=== PATIENT | male | born 1945 | race African-American/Black ===

== ENCOUNTER 2017-09-03 11:12 | Inpatient (IN) | payer OTHER ==
[~2017-09-03] VITALS: Ht 170.2 cm; Wt 74.8 kg
[2017-09-03] VITALS (31 sets, daily range): BP systolic 77–133; BP diastolic 44–80
[2017-09-03] MEDS ORDERED: SODIUM CHLORIDE 0.9% 1,000 ML IV ONE (11:44)
[2017-09-03 13:01] LABS: HEMATOCRIT. 26.3 % (42.0-52.0); HEMOGLOBIN. 8.5 g/dL (14.0-18.0); MEAN CORPUSCULAR HEMOGLOBIN 27.8 pg (28.0-32.0); MEAN CORPUSCULAR VOLUME 85.8 fL (80.0-94.0); MEAN PLATELET VOLUME 8.6 fl (7.4-10.4); PLATELET 283 x1000/uL (130-400); RED BLOOD CELL COUNT 3.06 mill/uL (4.7-6.1); RED CELL DISTRIBUTION WIDTH 14.1 % (11.6-14.6)
[2017-09-03 13:07] LABS: CARBON DIOXIDE 15 mEq/L (21-32); CHLORIDE 100 mEq/L (98-107); ETHANOL BLOOD < 10 mg/dL; TROPONIN I 0.18 ng/mL (0.00-0.04)
[2017-09-03] MEDS ORDERED: SODIUM CHLORIDE 0.9% 1000ML BAG (SEPSIS BOLUS) IV ONE (13:15)
[2017-09-03 13:23] LABS: CLARITY URINE CLOUDY (CLEAR); COLOR URINE YELLOW (YELLOW); GLUCOSE URINE NEGATIVE (NEGATIVE); KETONES URINE NEGATIVE (NEGATIVE); LEUKOCYTE ESTERASE URINE 2+ (NEGATIVE); NITRITE URINE NEGATIVE (NEGATIVE); OCCULT BLOOD URINE 3+ (NEGATIVE); PROTEIN URINE NEGATIVE (NEGATIVE); SPECIFIC GRAVITY URINE 1.018 (1.005-1.030); UROBILINOGEN URINE 0.2 E.U./dL (0.2-1.0)
[2017-09-03] MEDS ORDERED: LIDOCAINE HCL 1% 20ML VIAL (Pyxis) INJ ONE (13:26)
[2017-09-03 13:34] LABS: INR 1.2; PROTHROMBIN TIME 12.2 sec (9.4-11.6)
[2017-09-03] MEDS ORDERED: VANCOMYCIN 1 G PREMIX 200 ML IV SCH ×2 (13:45→17:15)
[2017-09-03] MEDS ORDERED: PIPERACILLIN/TAZ 3.375G PREMIX 50 ML IV NR (13:45)
[2017-09-03 13:58] LABS: PLATELET ESTIMATE NORMAL
[2017-09-03 14:00] LABS: *AMPHETAMINES SCREEN URINE NEGATIVE (NEGATIVE); *BARBITURATES SCREEN URINE NEGATIVE (NEGATIVE); *BENZODIAZEPINES SCREEN URINE NEGATIVE (NEGATIVE); *COCAINE SCREEN URINE NEGATIVE (NEGATIVE); CANNABINOID URINE SCREEN NEGATIVE (NEGATIVE); METHADONE URINE SCREEN NEGATIVE (NEGATIVE); OPIATES URINE SCREEN NEGATIVE (NEGATIVE); PHENCYCLIDINE URINE SCREEN NEGATIVE (NEGATIVE)
[2017-09-03] MEDS ORDERED: NOREPINEPHRINE 4 MG in DEXT 5% WATER 246 ML IV ONE ×2 (14:30→14:45)
[2017-09-03] MEDS ORDERED: HYDROCODONE/ACETAMINOPHEN 5/325MG TABLET PO PRN (17:15)
[2017-09-03] MEDS ORDERED: ONDANSETRON HCL 4MG/2ML VIAL IV PRN (17:15)
[2017-09-03] MEDS: SODIUM CHLORIDE 0.9% 1,000 ML IV SCH ×2 (17:21→21:30)
[2017-09-03] MEDS ORDERED: INFLUENZA VIRUS VACCINE 0.5ML SYR IM ONE (18:00)
[2017-09-03] MEDS ORDERED: PNEUMOCOCCAL 23-VAL P-SAC VAC 0.5 ML IM ONE (18:00)
[2017-09-03 19:29] LABS: PHOSPHORUS 9.5 mg/dL (2.5-4.9)
[2017-09-03] MEDS ORDERED: VANCOMYCIN 500 MG PREMIX 100 ML IV NR (19:30)
[2017-09-04] VITALS (116 sets, daily range): BP systolic 69–140; BP diastolic 38–112
[2017-09-04] LABS: CREATINE KINASE MB FRACTION 40.1 ng/mL (0.5-3.6); TROPONIN I 0.23 ng/mL (0.00-0.04)
[2017-09-04] MEDS: MORPHINE SULFATE 4 MG/ML CPJ (NOT FOR IM USE) IV PRN ×2 (02:14→06:14)
[2017-09-04] MEDS: SODIUM CHLORIDE 0.9% 1,000 ML IV SCH ×2 (02:18→05:57)
[2017-09-04 05:39] LABS: HEMATOCRIT. 24.3 % (42.0-52.0); HEMOGLOBIN. 7.8 g/dL (14.0-18.0); MEAN CORPUSCULAR HEMOGLOBIN 27.7 pg (28.0-32.0); MEAN CORPUSCULAR VOLUME 86.3 fL (80.0-94.0); MEAN PLATELET VOLUME 8.3 fl (7.4-10.4); PLATELET 252 x1000/uL (130-400); RED BLOOD CELL COUNT 2.82 mill/uL (4.7-6.1); RED CELL DISTRIBUTION WIDTH 14.4 % (11.6-14.6)
[2017-09-04 06:26] LABS: PHOSPHORUS 7.8 mg/dL (2.5-4.9)
[2017-09-04 06:39] LABS: CREATINE KINASE MB FRACTION 31.2 ng/mL (0.5-3.6); TROPONIN I 0.3 ng/mL (0.00-0.04)
[2017-09-04 06:48] LABS: HEPATITIS B SURFACE ANTIGEN NEGATIVE
[2017-09-04 07:16] LABS: HEPATITIS B CORE AB IGM NEGATIVE
[2017-09-04 07:18] LABS: HEPATITIS A AB IGM NEGATIVE (NEGATIVE)
[2017-09-04] MEDS: MULTIVITAMINS,THER W-MINERALS TABLET PO SCH (08:45)
[2017-09-04] MEDS: PANTOPRAZOLE SODIUM 40 MG/VIAL IV SCH (08:45)
[2017-09-04] MEDS: FERROUS SULFATE 325MG TABLET PO SCH (08:45)
[2017-09-04] MEDS ORDERED: CEFEPIME 2,000 MG in DEXT 5% WATER 100 ML IV SCH (09:00)
[2017-09-04] MEDS ORDERED: ENOXAPARIN 30MG/0.3ML SYR SUBCUT SCH (09:00)
[2017-09-04] MEDS ORDERED: CEFEPIME 500 MG in DEXTROSE 5% WATER 50 ML IV SCH (09:00)
[2017-09-04] MEDS: METRONIDAZOLE 500 MG PREMIX 100 ML IV SCH ×2 (09:12→15:34)
[2017-09-04] MEDS ORDERED: ENOXAPARIN 40MG/0.4ML SYR SUBCUT NR (11:15)
[2017-09-04] MEDS: DEXT 5%/0.45% NACL 1000ML 1,000 ML IV SCH (11:24)
[2017-09-04] MEDS: TAMSULOSIN HCL 0.4MG SR CAPSULE PO SCH (11:24)
[2017-09-04 13:40] LABS: PLATELET ESTIMATE NORMAL
[2017-09-04] MEDS ORDERED: VANCOMYCIN 1 G PREMIX 200 ML IV NR (16:00)
[2017-09-04] MEDS: NOREPINEPHRINE 8 MG in DEXT 5% WATER 242 ML IV PRN (20:38)
[2017-09-04] MEDS: CLOTRIMAZOLE 1% CREAM 30GM TOP SCH (23:34)
[2017-09-05] VITALS (94 sets, daily range): BP systolic 79–141; BP diastolic 27–100
[2017-09-05] MEDS: METRONIDAZOLE 500 MG PREMIX 100 ML IV SCH ×3 (00:21→16:18)
[2017-09-05] MEDS: DEXT 5%/0.45% NACL 1000ML 1,000 ML IV SCH ×2 (00:28→07:15)
[2017-09-05] MEDS: MORPHINE SULFATE 4 MG/ML CPJ (NOT FOR IM USE) IV PRN ×4 (01:12→22:19)
[2017-09-05] MEDS: LORAZEPAM 2MG/ML CPJ IV PRN (04:39)
[2017-09-05 05:24] LABS: HEMATOCRIT. 22.6 % (42.0-52.0); HEMOGLOBIN. 7.4 g/dL (14.0-18.0); MEAN CORPUSCULAR HEMOGLOBIN 28.6 pg (28.0-32.0); MEAN CORPUSCULAR VOLUME 87.1 fL (80.0-94.0); MEAN PLATELET VOLUME 8.3 fl (7.4-10.4); PLATELET 214 x1000/uL (130-400); RED BLOOD CELL COUNT 2.59 mill/uL (4.7-6.1); RED CELL DISTRIBUTION WIDTH 14.9 % (11.6-14.6)
[2017-09-05] MEDS: FERROUS SULFATE 325MG TABLET PO SCH (08:26)
[2017-09-05] MEDS: MULTIVITAMINS,THER W-MINERALS TABLET PO SCH (08:26)
[2017-09-05] MEDS: PANTOPRAZOLE SODIUM 40 MG/VIAL IV SCH (08:26)
[2017-09-05] MEDS: CEFEPIME 2,000 MG in DEXT 5% WATER 100 ML IV SCH (08:29)
[2017-09-05] MEDS ORDERED: ENOXAPARIN 80MG/0.8ML SYR SUBCUT SCH (09:00)
[2017-09-05] MEDS: CLOTRIMAZOLE 1% CREAM 30GM TOP SCH ×2 (09:26→23:11)
[2017-09-05] MEDS: TAMSULOSIN HCL 0.4MG SR CAPSULE PO SCH (09:26)
[2017-09-05] MEDS: DEXTROSE 5% WATER 1,000 ML IV SCH ×4 (09:26→22:55)
[2017-09-05 09:28] LABS: PLATELET ESTIMATE NORMAL
[2017-09-05 11:05] LABS: HEMATOCRIT. 22.5 % (42.0-52.0); HEMOGLOBIN. 7.3 g/dL (14.0-18.0); MEAN CORPUSCULAR HEMOGLOBIN 28.6 pg (28.0-32.0); MEAN CORPUSCULAR VOLUME 87.7 fL (80.0-94.0); MEAN PLATELET VOLUME 8.4 fl (7.4-10.4); PLATELET 208 x1000/uL (130-400); RED BLOOD CELL COUNT 2.57 mill/uL (4.7-6.1); RED CELL DISTRIBUTION WIDTH 15.1 % (11.6-14.6)
[2017-09-05] MEDS: NOREPINEPHRINE 8 MG in DEXT 5% WATER 242 ML IV PRN (11:07)
[2017-09-05 11:19] LABS: CARBON DIOXIDE 25 mEq/L (21-32); CHLORIDE 139 mEq/L (98-107); CREATINE KINASE 647 IU/L (39-308); CREATINE KINASE MB FRACTION 9.9 ng/mL (0.5-3.6); TROPONIN I 0.16 ng/mL (0.00-0.04)
[2017-09-05 12:59] LABS: PLATELET ESTIMATE NORMAL
[2017-09-05] MEDS: APIXABAN 5 MG TABLET PO SCH ×2 (15:12→22:19)
[2017-09-06] VITALS (103 sets, daily range): BP systolic 73–153; BP diastolic 22–89
[2017-09-06] MEDS: METRONIDAZOLE 500 MG PREMIX 100 ML IV SCH ×3 (00:14→15:04)
[2017-09-06] MEDS: MORPHINE SULFATE 4 MG/ML CPJ (NOT FOR IM USE) IV PRN ×2 (02:23→11:28)
[2017-09-06] MEDS: NOREPINEPHRINE 8 MG in DEXT 5% WATER 242 ML IV PRN (04:37)
[2017-09-06 05:15] LABS: CARBON DIOXIDE 25 mEq/L (21-32); CHLORIDE 136 mEq/L (98-107); CREATINE KINASE 522 IU/L (39-308)
[2017-09-06] MEDS: DEXTROSE 5% WATER 1,000 ML IV SCH ×4 (05:39→17:37)
[2017-09-06] MEDS: TAMSULOSIN HCL 0.4MG SR CAPSULE PO SCH ×2 (07:59→09:00)
[2017-09-06] MEDS: PANTOPRAZOLE SODIUM 40 MG/VIAL IV SCH (07:59)
[2017-09-06] MEDS: LORAZEPAM 2MG/ML CPJ IV PRN ×3 (07:59→17:36)
[2017-09-06] MEDS: FERROUS SULFATE 325MG TABLET PO SCH ×2 (08:00→09:00)
[2017-09-06] MEDS: APIXABAN 5 MG TABLET PO SCH ×3 (08:00→16:13)
[2017-09-06] MEDS: MULTIVITAMINS,THER W-MINERALS TABLET PO SCH ×2 (08:00→09:00)
[2017-09-06] MEDS: CLOTRIMAZOLE 1% CREAM 30GM TOP SCH ×2 (08:01→20:56)
[2017-09-06 08:07] LABS: HEMATOCRIT. 21.9 % (42.0-52.0); MEAN CORPUSCULAR HEMOGLOBIN 28.3 pg (28.0-32.0); MEAN CORPUSCULAR VOLUME 89.4 fL (80.0-94.0); MEAN PLATELET VOLUME 8.9 fl (7.4-10.4); PLATELET 192 x1000/uL (130-400); RED BLOOD CELL COUNT 2.45 mill/uL (4.7-6.1); RED CELL DISTRIBUTION WIDTH 15.5 % (11.6-14.6)
[2017-09-06 08:10] LABS: HEMOGLOBIN. 6.9 g/dL (14.0-18.0)
[2017-09-06] MEDS: CEFEPIME 2,000 MG in DEXT 5% WATER 100 ML IV SCH (09:52)
[2017-09-06 09:58] LABS: PLATELET ESTIMATE NORMAL
[2017-09-06 10:34] LABS: TOTAL IRON BINDING CAPACITY 132 ug/dL (250-450)
[2017-09-06 11:32] LABS: CLARITY URINE CLOUDY (CLEAR); COLOR URINE YELLOW (YELLOW); GLUCOSE URINE NEGATIVE (NEGATIVE); KETONES URINE NEGATIVE (NEGATIVE); LEUKOCYTE ESTERASE URINE 2+ (NEGATIVE); NITRITE URINE NEGATIVE (NEGATIVE); OCCULT BLOOD URINE 3+ (NEGATIVE); PROTEIN URINE 1+ (NEGATIVE); SPECIFIC GRAVITY URINE 1.018 (1.005-1.030); UROBILINOGEN URINE 0.2 E.U./dL (0.2-1.0)
[2017-09-06 11:54] LABS: FOLIC ACID (FOLATE) SERUM 4.3 ng/mL (>5.38)
[2017-09-06] MEDS ORDERED: VANCOMYCIN 1 G PREMIX 200 ML IV NR (12:15)
[2017-09-06] MEDS ORDERED: ACETAMINOPHEN 325MG TABLET PO PRN (12:45)
[2017-09-06] MEDS ORDERED: VANCOMYCIN 1 G PREMIX 200 ML IV SCH (13:00)
[2017-09-06 15:04] LABS: INR 1.5
[2017-09-06 15:25] LABS: HEMATOCRIT. 23.5 % (42.0-52.0); HEMOGLOBIN. 7.4 g/dL (14.0-18.0); MEAN CORPUSCULAR VOLUME 88.5 fL (80.0-94.0); MEAN PLATELET VOLUME 8.6 fl (7.4-10.4); PLATELET 163 x1000/uL (130-400); RED BLOOD CELL COUNT 2.66 mill/uL (4.7-6.1); RED CELL DISTRIBUTION WIDTH 16.9 % (11.6-14.6)
[2017-09-06 16:49] LABS: NUCLEATED RED BLOOD CELLS 2 /100 WBC; PLATELET ESTIMATE NORMAL
[2017-09-06] MEDS: VANCOMYCIN 500 MG PREMIX 100 ML IV SCH (20:56)
[2017-09-07] VITALS (84 sets, daily range): BP systolic 75–157; BP diastolic 36–93
[2017-09-07] MEDS: DEXTROSE 5% WATER 1,000 ML IV SCH ×5 (00:43→16:09)
[2017-09-07] MEDS: METRONIDAZOLE 500 MG PREMIX 100 ML IV SCH ×4 (00:43→23:18)
[2017-09-07 05:30] LABS: HEMATOCRIT. 22.8 % (42.0-52.0); HEMOGLOBIN. 7.3 g/dL (14.0-18.0); MEAN CORPUSCULAR HEMOGLOBIN 29.1 pg (28.0-32.0); PLATELET 133 x1000/uL (130-400); RED BLOOD CELL COUNT 2.51 mill/uL (4.7-6.1); RED CELL DISTRIBUTION WIDTH 17.5 % (11.6-14.6)
[2017-09-07 07:36] LABS: PLATELET ESTIMATE NORMAL
[2017-09-07 07:43] LABS: CARBON DIOXIDE 26 mEq/L (21-32); CHLORIDE 127 mEq/L (98-107); CREATINE KINASE 531 IU/L (39-308); CREATINE KINASE MB FRACTION 10.8 ng/mL (0.5-3.6); PHOSPHORUS 1.6 mg/dL (2.5-4.9)
[2017-09-07] MEDS: MULTIVITAMINS,THER W-MINERALS TABLET PO SCH (09:21)
[2017-09-07] MEDS: PANTOPRAZOLE SODIUM 40 MG/VIAL IV SCH (09:21)
[2017-09-07] MEDS: APIXABAN 5 MG TABLET PO SCH ×2 (09:21→16:55)
[2017-09-07] MEDS: FERROUS SULFATE 325MG TABLET PO SCH (09:21)
[2017-09-07] MEDS: CLOTRIMAZOLE 1% CREAM 30GM TOP SCH ×2 (09:22→21:10)
[2017-09-07] MEDS: TAMSULOSIN HCL 0.4MG SR CAPSULE PO SCH (09:24)
[2017-09-07] MEDS: CEFEPIME 2,000 MG in DEXT 5% WATER 100 ML IV SCH (10:49)
[2017-09-07] MEDS: VANCOMYCIN 500 MG PREMIX 100 ML IV SCH ×2 (11:28→21:09)
[2017-09-07] MEDS ORDERED: MAGNESIUM 2 G PREMIX 50 ML IV NR (12:00)
[2017-09-07] MEDS ORDERED: POTASSIUM PHOS,M-BASIC-D-BASIC 20 MMOL in DEXT 5% WATER 243.3333 ML IV NR (14:00)
[2017-09-08] VITALS (22 sets, daily range): BP systolic 88–136; BP diastolic 32–84
[2017-09-08] MEDS: DEXTROSE 5% WATER 1,000 ML IV SCH ×2 (04:30→17:31)
[2017-09-08] MEDS: CEFEPIME 2,000 MG in DEXT 5% WATER 100 ML IV SCH (09:12)
[2017-09-08] MEDS: VANCOMYCIN 500 MG PREMIX 100 ML IV SCH ×2 (09:13→20:49)
[2017-09-08] MEDS: METRONIDAZOLE 500 MG PREMIX 100 ML IV SCH ×2 (09:13→17:30)
[2017-09-08] MEDS: FERROUS SULFATE 325MG TABLET PO SCH (09:13)
[2017-09-08] MEDS: APIXABAN 5 MG TABLET PO SCH ×2 (09:13→17:30)
[2017-09-08] MEDS: PANTOPRAZOLE SODIUM 40 MG/VIAL IV SCH (09:13)
[2017-09-08] MEDS: MULTIVITAMINS,THER W-MINERALS TABLET PO SCH (09:13)
[2017-09-08] MEDS: CLOTRIMAZOLE 1% CREAM 30GM TOP SCH ×2 (09:14→20:50)
[2017-09-08] MEDS: TAMSULOSIN HCL 0.4MG SR CAPSULE PO SCH (09:16)
[2017-09-08] MEDS ORDERED: SODIUM CHLORIDE 0.9% 500 ML IV ONE (15:30)
[2017-09-08] MEDS: DEXT 5%/0.45% NACL 1000ML 1,000 ML IV SCH (17:43)
[2017-09-09] VITALS (12 sets, daily range): BP systolic 81–122; BP diastolic 40–73
[2017-09-09] MEDS: METRONIDAZOLE 500 MG PREMIX 100 ML IV SCH ×3 (05:27→16:29)
[2017-09-09 06:55] LABS: BASOPHILS % 0.5 % (0.0-2.0); EOSINOPHILS % 1.2 % (0.0-5.0); HEMATOCRIT. 24.5 % (42.0-52.0); LYMPHOCYTES % 9.8 % (20.0-50.0); MEAN CORPUSCULAR HEMOGLOBIN 28.8 pg (28.0-32.0); MEAN CORPUSCULAR VOLUME 88.2 fL (80.0-94.0); MEAN PLATELET VOLUME 9.1 fl (7.4-10.4); MONOCYTES % 6.4 % (2.0-8.0); NEUTROPHILS % 82.1 % (40.0-76.0); PLATELET 120 x1000/uL (130-400); RED BLOOD CELL COUNT 2.77 mill/uL (4.7-6.1); RED CELL DISTRIBUTION WIDTH 17.3 % (11.6-14.6)
[2017-09-09 08:23] LABS: CARBON DIOXIDE 25 mEq/L (21-32); CHLORIDE 124 mEq/L (98-107)
[2017-09-09] MEDS: FERROUS SULFATE 325MG TABLET PO SCH (09:27)
[2017-09-09] MEDS: MULTIVITAMINS,THER W-MINERALS TABLET PO SCH (09:27)
[2017-09-09] MEDS: PANTOPRAZOLE SODIUM 40 MG/VIAL IV SCH (09:27)
[2017-09-09] MEDS: CEFEPIME 2,000 MG in DEXT 5% WATER 100 ML IV SCH (09:27)
[2017-09-09] MEDS: CLOTRIMAZOLE 1% CREAM 30GM TOP SCH ×2 (09:28→20:59)
[2017-09-09] MEDS: TAMSULOSIN HCL 0.4MG SR CAPSULE PO SCH (09:28)
[2017-09-09] MEDS: APIXABAN 5 MG TABLET PO SCH ×2 (09:28→16:29)
[2017-09-09] MEDS ORDERED: POTASSIUM CHLORIDE 20MEQ/PACKET PO NR ×3 (09:30→18:00)
[2017-09-09] MEDS ORDERED: MAGNESIUM 2 G PREMIX 50 ML IV NR (11:00)
[2017-09-09] MEDS: DEXT 5%/0.45% NACL 1000ML 1,000 ML IV SCH (14:40)
[2017-09-09] MEDS: DEXTROSE 5% WATER 1,000 ML IV SCH (21:03)
[2017-09-10] VITALS (12 sets, daily range): BP systolic 84–134; BP diastolic 48–76
[2017-09-10 00:13] LABS: CARBON DIOXIDE 24 mEq/L (21-32); CHLORIDE 127 mEq/L (98-107)
[2017-09-10] MEDS: METRONIDAZOLE 500 MG PREMIX 100 ML IV SCH ×3 (00:59→17:13)
[2017-09-10] MEDS: CEFEPIME 2,000 MG in DEXT 5% WATER 100 ML IV SCH (09:00)
[2017-09-10] MEDS: CLOTRIMAZOLE 1% CREAM 30GM TOP SCH ×2 (09:00→22:22)
[2017-09-10] MEDS: APIXABAN 5 MG TABLET PO SCH ×2 (09:34→17:15)
[2017-09-10] MEDS: PANTOPRAZOLE SODIUM 40 MG/VIAL IV SCH (09:34)
[2017-09-10] MEDS: MULTIVITAMINS,THER W-MINERALS TABLET PO SCH (09:35)
[2017-09-10] MEDS: TAMSULOSIN HCL 0.4MG SR CAPSULE PO SCH (09:35)
[2017-09-10] MEDS: FERROUS SULFATE 325MG TABLET PO SCH (09:35)
[2017-09-10] MEDS: DEXTROSE 5% WATER 1,000 ML IV SCH (10:41)
[2017-09-10] MEDS: POTASSIUM CHLORIDE 20MEQ TABLET SR PO NR ×2 (22:22→22:28)
[2017-09-10 22:28] LABS: BASOPHILS % 0.5 % (0.0-2.0); EOSINOPHILS % 1.3 % (0.0-5.0); HEMATOCRIT. 24.7 % (42.0-52.0); HEMOGLOBIN. 8.1 g/dL (14.0-18.0); LYMPHOCYTES % 11.3 % (20.0-50.0); MEAN CORPUSCULAR HEMOGLOBIN 29.1 pg (28.0-32.0); MEAN CORPUSCULAR VOLUME 88.6 fL (80.0-94.0); MONOCYTES % 7.2 % (2.0-8.0); NEUTROPHILS % 79.7 % (40.0-76.0); PLATELET 117 x1000/uL (130-400); RED BLOOD CELL COUNT 2.78 mill/uL (4.7-6.1); RED CELL DISTRIBUTION WIDTH 17.4 % (11.6-14.6)
[2017-09-10 22:41] LABS: CARBON DIOXIDE 26 mEq/L (21-32); CHLORIDE 122 mEq/L (98-107)
[2017-09-11] VITALS (16 sets, daily range): BP systolic 100–144; BP diastolic 57–89
[2017-09-11] MEDS: DEXTROSE 5% WATER 1,000 ML IV SCH ×2 (01:20→17:57)
[2017-09-11] MEDS: METRONIDAZOLE 500 MG PREMIX 100 ML IV SCH ×2 (01:20→10:50)
[2017-09-11] MEDS: PANTOPRAZOLE SODIUM 40 MG/VIAL IV SCH (10:48)
[2017-09-11] MEDS: APIXABAN 5 MG TABLET PO SCH ×2 (10:48→17:57)
[2017-09-11] MEDS: TAMSULOSIN HCL 0.4MG SR CAPSULE PO SCH (10:49)
[2017-09-11] MEDS: FERROUS SULFATE 325MG TABLET PO SCH (10:49)
[2017-09-11] MEDS: MULTIVITAMINS,THER W-MINERALS TABLET PO SCH (10:49)
[2017-09-11] MEDS: CEFEPIME 2,000 MG in DEXT 5% WATER 100 ML IV SCH (10:50)
[2017-09-11] MEDS: CLOTRIMAZOLE 1% CREAM 30GM TOP SCH ×2 (10:51→22:04)
[2017-09-12] VITALS (16 sets, daily range): BP systolic 100–153; BP diastolic 56–88
[2017-09-12] MEDS: DEXTROSE 5% WATER 1,000 ML IV SCH ×2 (04:37→09:45)
[2017-09-12] MEDS: CLOTRIMAZOLE 1% CREAM 30GM TOP SCH (09:00)
[2017-09-12] MEDS: MULTIVITAMINS,THER W-MINERALS TABLET PO SCH (09:10)
[2017-09-12] MEDS: PANTOPRAZOLE SODIUM 40 MG/VIAL IV SCH (09:10)
[2017-09-12] MEDS: APIXABAN 5 MG TABLET PO SCH ×2 (09:10→18:13)
[2017-09-12] MEDS: FERROUS SULFATE 325MG TABLET PO SCH (09:10)
[2017-09-12] MEDS: CEFEPIME 2,000 MG in DEXT 5% WATER 100 ML IV SCH (09:10)
[2017-09-12] MEDS: TAMSULOSIN HCL 0.4MG SR CAPSULE PO SCH (09:11)
[2017-09-12] MEDS ORDERED: MAGNESIUM/ALUMINUM HYDROXIDE/SIMETHICONE 30ML UDC PO PRN (09:30)
[2017-09-12] MEDS ORDERED: SODIUM CHLORIDE 0.9% 1,000 ML IV SCH (09:45)
[2017-09-12 11:24] LABS: BASOPHILS % 0.7 % (0.0-2.0); HEMATOCRIT. 22.1 % (42.0-52.0); HEMOGLOBIN. 7.3 g/dL (14.0-18.0); LYMPHOCYTES % 16.1 % (20.0-50.0); MEAN CORPUSCULAR HEMOGLOBIN 29.2 pg (28.0-32.0); MEAN PLATELET VOLUME 8.7 fl (7.4-10.4); MONOCYTES % 8.7 % (2.0-8.0); NEUTROPHILS % 72.5 % (40.0-76.0); PLATELET 123 x1000/uL (130-400); RED BLOOD CELL COUNT 2.49 mill/uL (4.7-6.1); RED CELL DISTRIBUTION WIDTH 17.6 % (11.6-14.6)
[2017-09-12 11:39] LABS: CARBON DIOXIDE 26 mEq/L (21-32); CHLORIDE 111 mEq/L (98-107); PHOSPHORUS 1.1 mg/dL (2.5-4.9)
[2017-09-12] MEDS: POTASSIUM CHLORIDE 20MEQ/PACKET PO SCH ×2 (13:12→18:13)
[2017-09-12] MEDS ORDERED: MAGNESIUM 2 G PREMIX 50 ML IV NR (13:30)
[2017-09-12] MEDS ORDERED: POTASSIUM PHOS,M-BASIC-D-BASIC 20 MMOL in DEXT 5% WATER 243.3333 ML IV NR (13:30)
[2017-09-13] VITALS (12 sets, daily range): BP systolic 106–149; BP diastolic 62–79
[2017-09-13] MEDS: DEXTROSE 5% WATER 1,000 ML IV SCH ×3 (00:45→22:48)
[2017-09-13] MEDS: CLOTRIMAZOLE 1% CREAM 30GM TOP SCH ×3 (00:46→22:08)
[2017-09-13 06:14] LABS: BASOPHILS % 0.6 % (0.0-2.0); EOSINOPHILS % 1.7 % (0.0-5.0); HEMOGLOBIN. 8.9 g/dL (14.0-18.0); LYMPHOCYTES % 15.8 % (20.0-50.0); MEAN CORPUSCULAR HEMOGLOBIN 28.9 pg (28.0-32.0); MEAN CORPUSCULAR VOLUME 90.6 fL (80.0-94.0); NEUTROPHILS % 71.9 % (40.0-76.0); PLATELET 135 x1000/uL (130-400); RED BLOOD CELL COUNT 3.08 mill/uL (4.7-6.1); RED CELL DISTRIBUTION WIDTH 19.3 % (11.6-14.6)
[2017-09-13 06:24] LABS: CARBON DIOXIDE 25 mEq/L (21-32); CHLORIDE 118 mEq/L (98-107)
[2017-09-13] MEDS: MULTIVITAMINS,THER W-MINERALS TABLET PO SCH (09:06)
[2017-09-13] MEDS: TAMSULOSIN HCL 0.4MG SR CAPSULE PO SCH (09:07)
[2017-09-13] MEDS: MAGNESIUM OXIDE 400MG TABLET PO SCH (09:07)
[2017-09-13] MEDS: FERROUS SULFATE 325MG TABLET PO SCH (09:07)
[2017-09-13] MEDS: FOLIC ACID 1MG TABLET PO SCH (09:07)
[2017-09-13] MEDS: APIXABAN 5 MG TABLET PO SCH ×2 (09:07→16:57)
[2017-09-13] MEDS ORDERED: POTASSIUM PHOS,M-BASIC-D-BASIC 15 MMOL in DEXT 5% WATER 245 ML IV ONE (10:00)
[2017-09-13] MEDS ORDERED: MAGNESIUM 2 G PREMIX 50 ML IV ONE (11:00)
[2017-09-13] MEDS ORDERED: POTASSIUM CHLORIDE 20MEQ TABLET SR PO NR (12:45)
[2017-09-14] VITALS (12 sets, daily range): BP systolic 93–151; BP diastolic 43–80
[2017-09-14] MEDS: DEXTROSE 5% WATER 1,000 ML IV SCH ×2 (01:45→16:48)
[2017-09-14 05:55] LABS: BASOPHILS % 0.7 % (0.0-2.0); EOSINOPHILS % 1.5 % (0.0-5.0); HEMATOCRIT. 28.2 % (42.0-52.0); HEMOGLOBIN. 9.3 g/dL (14.0-18.0); MEAN CORPUSCULAR HEMOGLOBIN 28.6 pg (28.0-32.0); MEAN CORPUSCULAR VOLUME 86.9 fL (80.0-94.0); MEAN PLATELET VOLUME 8.7 fl (7.4-10.4); NEUTROPHILS % 72.8 % (40.0-76.0); PLATELET 147 x1000/uL (130-400); RED BLOOD CELL COUNT 3.24 mill/uL (4.7-6.1); RED CELL DISTRIBUTION WIDTH 18.9 % (11.6-14.6)
[2017-09-14 06:39] LABS: CARBON DIOXIDE 29 mEq/L (21-32); CHLORIDE 113 mEq/L (98-107); PHOSPHORUS 1.9 mg/dL (2.5-4.9)
[2017-09-14] MEDS: APIXABAN 5 MG TABLET PO SCH ×2 (08:30→16:48)
[2017-09-14] MEDS: FERROUS SULFATE 325MG TABLET PO SCH (08:31)
[2017-09-14] MEDS: MULTIVITAMINS,THER W-MINERALS TABLET PO SCH (08:31)
[2017-09-14] MEDS: TAMSULOSIN HCL 0.4MG SR CAPSULE PO SCH (08:31)
[2017-09-14] MEDS: FOLIC ACID 1MG TABLET PO SCH (08:31)
[2017-09-14] MEDS: MAGNESIUM OXIDE 400MG TABLET PO SCH (08:31)
[2017-09-14] MEDS: CLOTRIMAZOLE 1% CREAM 30GM TOP SCH ×2 (08:32→22:13)
[2017-09-14] MEDS ORDERED: POTASSIUM PHOS,M-BASIC-D-BASIC 20 MMOL in DEXT 5% WATER 243.3333 ML IV NR (18:00)
[2017-09-15] VITALS (12 sets, daily range): BP systolic 91–143; BP diastolic 54–78
[2017-09-15] MEDS: DEXTROSE 5% WATER 1,000 ML IV SCH ×2 (05:19→15:55)
[2017-09-15] MEDS: CLOTRIMAZOLE 1% CREAM 30GM TOP SCH ×2 (09:16→22:05)
[2017-09-15] MEDS: FOLIC ACID 1MG TABLET PO SCH (09:16)
[2017-09-15] MEDS: MAGNESIUM OXIDE 400MG TABLET PO SCH (09:16)
[2017-09-15] MEDS: APIXABAN 5 MG TABLET PO SCH ×2 (09:17→17:21)
[2017-09-15] MEDS: FERROUS SULFATE 325MG TABLET PO SCH (09:17)
[2017-09-15] MEDS: MULTIVITAMINS,THER W-MINERALS TABLET PO SCH (09:18)
[2017-09-15] MEDS: TAMSULOSIN HCL 0.4MG SR CAPSULE PO SCH (09:22)
[2017-09-16] VITALS (12 sets, daily range): BP systolic 116–145; BP diastolic 66–83
[2017-09-16] MEDS: DEXTROSE 5% WATER 1,000 ML IV SCH (06:05)
[2017-09-16 06:56] LABS: BASOPHILS % 0.4 % (0.0-2.0); EOSINOPHILS % 1.1 % (0.0-5.0); HEMATOCRIT. 25.3 % (42.0-52.0); HEMOGLOBIN. 8.3 g/dL (14.0-18.0); MEAN CORPUSCULAR HEMOGLOBIN 28.7 pg (28.0-32.0); MEAN CORPUSCULAR VOLUME 87.2 fL (80.0-94.0); MEAN PLATELET VOLUME 8.6 fl (7.4-10.4); MONOCYTES % 10.8 % (2.0-8.0); NEUTROPHILS % 64.7 % (40.0-76.0); PLATELET 156 x1000/uL (130-400); RED CELL DISTRIBUTION WIDTH 18.5 % (11.6-14.6)
[2017-09-16 07:33] LABS: CARBON DIOXIDE 30 mEq/L (21-32); CHLORIDE 107 mEq/L (98-107); PHOSPHORUS 1.8 mg/dL (2.5-4.9)
[2017-09-16] MEDS: FOLIC ACID 1MG TABLET PO SCH (08:49)
[2017-09-16] MEDS: MULTIVITAMINS,THER W-MINERALS TABLET PO SCH (08:49)
[2017-09-16] MEDS: MAGNESIUM OXIDE 400MG TABLET PO SCH (08:49)
[2017-09-16] MEDS: APIXABAN 5 MG TABLET PO SCH ×2 (08:49→16:49)
[2017-09-16] MEDS: CLOTRIMAZOLE 1% CREAM 30GM TOP SCH ×2 (08:49→20:35)
[2017-09-16] MEDS: FERROUS SULFATE 325MG TABLET PO SCH (08:49)
[2017-09-16] MEDS: TAMSULOSIN HCL 0.4MG SR CAPSULE PO SCH (08:50)
[2017-09-16] MEDS: POTASSIUM CHLORIDE 20MEQ TABLET SR PO SCH (16:49)
[2017-09-17] VITALS (7 sets, daily range): BP systolic 100–150; BP diastolic 61–92
[2017-09-17] MEDS: POTASSIUM CHLORIDE 20MEQ TABLET SR PO SCH ×2 (02:13→14:57)
[2017-09-17] MEDS: APIXABAN 5 MG TABLET PO SCH ×2 (08:52→17:38)
[2017-09-17] MEDS: FOLIC ACID 1MG TABLET PO SCH (08:52)
[2017-09-17] MEDS: MAGNESIUM OXIDE 400MG TABLET PO SCH ×3 (08:53→17:38)
[2017-09-17] MEDS: MULTIVITAMINS,THER W-MINERALS TABLET PO SCH (08:55)
[2017-09-17] MEDS: TAMSULOSIN HCL 0.4MG SR CAPSULE PO SCH (08:55)
[2017-09-17] MEDS: CLOTRIMAZOLE 1% CREAM 30GM TOP SCH ×2 (14:00→21:21)
[2017-09-18] VITALS: BP 133/75
[2017-09-18] MEDS: POTASSIUM CHLORIDE 20MEQ TABLET SR PO SCH ×2 (02:29→14:00)
[2017-09-18 04:00] VITALS: BP 141/82
[2017-09-18 06:43] LABS: BASOPHILS % 0.8 % (0.0-2.0); EOSINOPHILS % 1.3 % (0.0-5.0); HEMATOCRIT. 26.5 % (42.0-52.0); HEMOGLOBIN. 8.6 g/dL (14.0-18.0); LYMPHOCYTES % 29.5 % (20.0-50.0); MEAN CORPUSCULAR HEMOGLOBIN 28.6 pg (28.0-32.0); MEAN CORPUSCULAR VOLUME 87.8 fL (80.0-94.0); MEAN PLATELET VOLUME 8.1 fl (7.4-10.4); MONOCYTES % 14.6 % (2.0-8.0); NEUTROPHILS % 53.8 % (40.0-76.0); PLATELET 210 x1000/uL (130-400); RED BLOOD CELL COUNT 3.02 mill/uL (4.7-6.1); RED CELL DISTRIBUTION WIDTH 19.2 % (11.6-14.6)
[2017-09-18 07:31] LABS: CARBON DIOXIDE 27 mEq/L (21-32); CHLORIDE 111 mEq/L (98-107); PHOSPHORUS 1.7 mg/dL (2.5-4.9)
[2017-09-18 08:00] VITALS: BP 138/78
[2017-09-18] MEDS: MULTIVITAMINS,THER W-MINERALS TABLET PO SCH (09:52)
[2017-09-18] MEDS: TAMSULOSIN HCL 0.4MG SR CAPSULE PO SCH (09:54)
[2017-09-18] MEDS: APIXABAN 5 MG TABLET PO SCH ×2 (09:54→21:14)
[2017-09-18] MEDS: FOLIC ACID 1MG TABLET PO SCH (09:54)
[2017-09-18] MEDS: CLOTRIMAZOLE 1% CREAM 30GM TOP SCH ×2 (09:54→21:00)
[2017-09-18] MEDS: MAGNESIUM OXIDE 400MG TABLET PO SCH ×3 (09:54→21:15)
[2017-09-18 12:00] VITALS: BP 137/78
[2017-09-18 16:00] VITALS: BP 96/56
[2017-09-18 20:00] VITALS: BP 144/87
[2017-09-18] MEDS ORDERED: SODIUM PHOS,M-BASIC-D-BASIC 20 MM in DEXT 5% WATER 243.3333 ML IV NR (22:00)
[2017-09-19] VITALS: BP 135/79
[2017-09-19] MEDS: POTASSIUM CHLORIDE 20MEQ TABLET SR PO SCH ×2 (02:32→17:59)
[2017-09-19 04:00] VITALS: BP 128/78
[2017-09-19 08:00] VITALS: BP_SYST 109; BP_SYST 117; BP_DIAS 70; BP_DIAS 85
[2017-09-19] MEDS: APIXABAN 5 MG TABLET PO SCH ×2 (11:26→17:55)
[2017-09-19] MEDS: FOLIC ACID 1MG TABLET PO SCH (11:27)
[2017-09-19] MEDS: MAGNESIUM OXIDE 400MG TABLET PO SCH ×3 (11:27→17:56)
[2017-09-19] MEDS: TAMSULOSIN HCL 0.4MG SR CAPSULE PO SCH (11:27)
[2017-09-19] MEDS: MULTIVITAMINS,THER W-MINERALS TABLET PO SCH (11:27)
[2017-09-19] MEDS: POTASSIUM-SODIUM PHOSPHATE POWDER PACKET PO SCH ×2 (11:38→17:59)
[2017-09-19 12:00] VITALS: BP 117/70
[2017-09-19 16:00] VITALS: BP 124/73
[2017-09-19] MEDS: CLOTRIMAZOLE 1% CREAM 30GM TOP SCH ×2 (18:00→21:00)
[2017-09-19 20:00] VITALS: BP 120/80
[2017-09-20] VITALS: BP 139/86
[2017-09-20] MEDS: POTASSIUM CHLORIDE 20MEQ TABLET SR PO SCH ×2 (02:44→13:43)
[2017-09-20 04:00] VITALS: BP 138/76
[2017-09-20 06:57] LABS: HEMATOCRIT. 27.6 % (42.0-52.0); HEMOGLOBIN. 8.9 g/dL (14.0-18.0); MEAN CORPUSCULAR HEMOGLOBIN 28.6 pg (28.0-32.0); MEAN CORPUSCULAR VOLUME 88.3 fL (80.0-94.0); MEAN PLATELET VOLUME 7.9 fl (7.4-10.4); PLATELET 245 x1000/uL (130-400); RED BLOOD CELL COUNT 3.12 mill/uL (4.7-6.1)
[2017-09-20 08:00] VITALS: BP 158/92
[2017-09-20 08:02] LABS: CARBON DIOXIDE 30 mEq/L (21-32); CHLORIDE 109 mEq/L (98-107)
[2017-09-20] MEDS: FOLIC ACID 1MG TABLET PO SCH (08:32)
[2017-09-20] MEDS: MAGNESIUM OXIDE 400MG TABLET PO SCH ×3 (08:32→17:24)
[2017-09-20] MEDS: APIXABAN 5 MG TABLET PO SCH ×2 (08:32→17:24)
[2017-09-20] MEDS: MULTIVITAMINS,THER W-MINERALS TABLET PO SCH (08:32)
[2017-09-20] MEDS: POTASSIUM-SODIUM PHOSPHATE POWDER PACKET PO SCH ×2 (08:33→17:29)
[2017-09-20] MEDS: TAMSULOSIN HCL 0.4MG SR CAPSULE PO SCH (08:34)
[2017-09-20] MEDS: CLOTRIMAZOLE 1% CREAM 30GM TOP SCH ×2 (08:35→21:21)
[2017-09-20 12:00] VITALS: BP 106/63
[2017-09-20 13:59] LABS: PLATELET ESTIMATE NORMAL
[2017-09-20 16:00] VITALS: BP 127/87
[2017-09-20 20:00] VITALS: BP 121/75
[2017-09-21] VITALS: BP 146/89
[2017-09-21] MEDS: POTASSIUM CHLORIDE 20MEQ TABLET SR PO SCH ×2 (02:17→13:44)
[2017-09-21 04:00] VITALS: BP 138/91
[2017-09-21 06:27] LABS: PHOSPHORUS 1.7 mg/dL (2.5-4.9)
[2017-09-21 08:00] VITALS: BP 143/79
[2017-09-21] MEDS: POTASSIUM-SODIUM PHOSPHATE POWDER PACKET PO SCH ×2 (08:25→17:06)
[2017-09-21] MEDS: MULTIVITAMINS,THER W-MINERALS TABLET PO SCH (08:26)
[2017-09-21] MEDS: FOLIC ACID 1MG TABLET PO SCH (08:26)
[2017-09-21] MEDS: MAGNESIUM OXIDE 400MG TABLET PO SCH ×3 (08:26→17:04)
[2017-09-21] MEDS: APIXABAN 5 MG TABLET PO SCH ×2 (08:26→17:06)
[2017-09-21] MEDS: TAMSULOSIN HCL 0.4MG SR CAPSULE PO SCH ×2 (08:26→17:00)
[2017-09-21 12:00] VITALS: BP 129/81
[2017-09-21] MEDS: CLOTRIMAZOLE 1% CREAM 30GM TOP SCH ×2 (12:34→20:50)
[2017-09-21 16:00] VITALS: BP 96/53
[2017-09-21] MEDS ORDERED: MAGNESIUM 2 G PREMIX 50 ML IV NR (19:00)
[2017-09-21] MEDS ORDERED: POTASSIUM PHOS,M-BASIC-D-BASIC 20 MMOL in DEXT 5% WATER 243.3333 ML IV NR (19:00)
[2017-09-21 20:00] VITALS: BP 133/85
[2017-09-22] VITALS: BP 153/99
[2017-09-22] MEDS: POTASSIUM CHLORIDE 20MEQ TABLET SR PO SCH ×2 (02:34→13:10)
[2017-09-22 04:00] VITALS: BP 145/86
[2017-09-22 08:00] VITALS: BP 149/84
[2017-09-22] MEDS: TAMSULOSIN HCL 0.4MG SR CAPSULE PO SCH ×2 (08:32→18:02)
[2017-09-22] MEDS: FOLIC ACID 1MG TABLET PO SCH (08:32)
[2017-09-22] MEDS: APIXABAN 5 MG TABLET PO SCH ×2 (08:32→18:02)
[2017-09-22] MEDS: MULTIVITAMINS,THER W-MINERALS TABLET PO SCH (08:32)
[2017-09-22] MEDS: MAGNESIUM OXIDE 400MG TABLET PO SCH ×3 (08:32→18:02)
[2017-09-22] MEDS: POTASSIUM-SODIUM PHOSPHATE POWDER PACKET PO SCH ×2 (08:32→18:02)
[2017-09-22 12:00] VITALS: BP 100/63
[2017-09-22] MEDS: CLOTRIMAZOLE 1% CREAM 30GM TOP SCH ×2 (13:04→22:28)
[2017-09-22 16:00] VITALS: BP 104/65
[2017-09-22 20:00] VITALS: BP 116/66
[2017-09-23] VITALS: BP 131/85
[2017-09-23] MEDS: POTASSIUM CHLORIDE 20MEQ TABLET SR PO SCH (02:43)
[2017-09-23 04:00] VITALS: BP 124/70
[2017-09-23 07:02] LABS: HEMATOCRIT. 28.2 % (42.0-52.0); HEMOGLOBIN. 9.1 g/dL (14.0-18.0); MEAN CORPUSCULAR HEMOGLOBIN 28.9 pg (28.0-32.0); MEAN PLATELET VOLUME 7.8 fl (7.4-10.4); PLATELET 305 x1000/uL (130-400); RED BLOOD CELL COUNT 3.17 mill/uL (4.7-6.1); RED CELL DISTRIBUTION WIDTH 18.1 % (11.6-14.6)
[2017-09-23 07:21] LABS: CHLORIDE 105 mEq/L (98-107)
[2017-09-23 07:40] LABS: CARBON DIOXIDE 27 mEq/L (21-32)
[2017-09-23 08:00] VITALS: BP 137/87
[2017-09-23] MEDS: APIXABAN 5 MG TABLET PO SCH ×2 (09:08→17:12)
[2017-09-23] MEDS: MAGNESIUM OXIDE 400MG TABLET PO SCH ×3 (09:09→17:12)
[2017-09-23] MEDS: TAMSULOSIN HCL 0.4MG SR CAPSULE PO SCH ×2 (09:09→17:13)
[2017-09-23] MEDS: FOLIC ACID 1MG TABLET PO SCH (09:09)
[2017-09-23] MEDS: CLOTRIMAZOLE 1% CREAM 30GM TOP SCH ×2 (09:10→22:20)
[2017-09-23] MEDS: MULTIVITAMINS,THER W-MINERALS TABLET PO SCH (09:13)
[2017-09-23 12:00] VITALS: BP 105/68
[2017-09-23 14:16] LABS: PLATELET ESTIMATE NORMAL
[2017-09-23 16:00] VITALS: BP 104/64
[2017-09-23 20:00] VITALS: BP 94/49
[2017-09-24] VITALS: BP 126/69
[2017-09-24 04:00] VITALS: BP 143/88
[2017-09-24 08:00] VITALS: BP 107/71
[2017-09-24] MEDS: FOLIC ACID 1MG TABLET PO SCH (09:44)
[2017-09-24] MEDS: MAGNESIUM OXIDE 400MG TABLET PO SCH ×3 (09:44→16:58)
[2017-09-24] MEDS: MULTIVITAMINS,THER W-MINERALS TABLET PO SCH (09:45)
[2017-09-24] MEDS: TAMSULOSIN HCL 0.4MG SR CAPSULE PO SCH ×2 (09:45→16:58)
[2017-09-24] MEDS: CLOTRIMAZOLE 1% CREAM 30GM TOP SCH ×2 (09:45→21:29)
[2017-09-24] MEDS: APIXABAN 5 MG TABLET PO SCH ×2 (09:45→16:58)
[2017-09-24 12:00] VITALS: BP 118/76
[2017-09-24 16:00] VITALS: BP 134/82
[2017-09-24 20:00] VITALS: BP 101/59
[2017-09-25] VITALS: BP 130/66
[2017-09-25 04:00] VITALS: BP 116/74
[2017-09-25 06:58] LABS: BASOPHILS % 0.5 % (0.0-2.0); EOSINOPHILS % 0.4 % (0.0-5.0); HEMATOCRIT. 29.2 % (42.0-52.0); HEMOGLOBIN. 9.5 g/dL (14.0-18.0); LYMPHOCYTES % 17.5 % (20.0-50.0); MEAN CORPUSCULAR HEMOGLOBIN 28.8 pg (28.0-32.0); MEAN CORPUSCULAR VOLUME 88.5 fL (80.0-94.0); MEAN PLATELET VOLUME 7.5 fl (7.4-10.4); NEUTROPHILS % 68.6 % (40.0-76.0); PLATELET 321 x1000/uL (130-400); RED BLOOD CELL COUNT 3.31 mill/uL (4.7-6.1); RED CELL DISTRIBUTION WIDTH 17.7 % (11.6-14.6)
[2017-09-25 07:11] LABS: CARBON DIOXIDE 28 mEq/L (21-32); CHLORIDE 104 mEq/L (98-107)
[2017-09-25 08:35] VITALS: BP 125/57
[2017-09-25] MEDS: MULTIVITAMINS,THER W-MINERALS TABLET PO SCH (08:37)
[2017-09-25] MEDS: APIXABAN 5 MG TABLET PO SCH (08:37)
[2017-09-25] MEDS: TAMSULOSIN HCL 0.4MG SR CAPSULE PO SCH (08:38)
[2017-09-25] MEDS: MAGNESIUM OXIDE 400MG TABLET PO SCH ×2 (08:38→12:34)
[2017-09-25] MEDS: FOLIC ACID 1MG TABLET PO SCH (08:38)
[2017-09-25] MEDS: CLOTRIMAZOLE 1% CREAM 30GM TOP SCH (08:41)
[2017-09-25 12:00] VITALS: BP 141/67
== END 2017-09-25 15:45 | disposition home or self-care (01) | DRG 871 ==
LOC: ER 11:24 → EDBEDREQ 11:59 → MICUSO 14:38 → EDBEDREQSVC 14:41 → EDBEDREQ 14:41 → EDBEDREQTM 14:41 → ENRESERV 14:46 → 5EST 09-08 03:13 → 6EST 09-17 05:30
PROVIDERS: ADMIT Internal Medicine Nephrology; ATTEND Internal Medicine Nephrology
PROC: 02HV33Z Insertion of Infusion Device into Superior Vena Cava, Percutaneous Approach (ICD-10-PCS; principal; 2017-09-03)
PROC: B548ZZA Ultrasonography of Superior Vena Cava, Guidance (ICD-10-PCS; 2017-09-03)
PROC: 30233N1 Transfusion of Nonautologous Red Blood Cells into Peripheral Vein, Percutaneous Approach (ICD-10-PCS; 2017-09-06)
DX: A41.9 Sepsis, unspecified organism (principal); R65.21 Severe sepsis with septic shock; N17.0 Acute kidney failure with tubular necrosis; E43 Unspecified severe protein-calorie malnutrition; G93.41 Metabolic encephalopathy; K85.90 Acute pancreatitis without necrosis or infection, unspecified; E87.0 Hyperosmolality and hypernatremia; I82.431 Acute embolism and thrombosis of right popliteal vein; M62.82 Rhabdomyolysis; B15.9 Hepatitis A without hepatic coma; N13.30 Unspecified hydronephrosis; N39.0 Urinary tract infection, site not specified; E83.39 Other disorders of phosphorus metabolism; D64.9 Anemia, unspecified; E83.42 Hypomagnesemia; E87.6 Hypokalemia; E86.0 Dehydration; N40.0 Benign prostatic hyperplasia without lower urinary tract symptoms; I10 Essential (primary) hypertension; F17.200 Nicotine dependence, unspecified, uncomplicated; F10.10 Alcohol abuse, uncomplicated; K52.9 Noninfective gastroenteritis and colitis, unspecified; Z59.0 Homelessness; Z68.25 Body mass index [BMI] 25.0-25.9, adult
CPT/HCPCS: 36415; 36569; 70450; 71010; 74176; 76700; 76770; 76937; 80048; 80053; 80202; 80305; 81001; 82270; 82550; 82553; 82607; 82728; 82746; 83540; 83550; 83605; 83690; 83735; 83880; 84100; 84153; 84443; 84484; 85025; 85384; 85610; 86703; 86705; 86709; 86803; 86850; 86900; 86920; 87015; 87040; 87045; 87086; 87340; 87427; 87449; 87493; 92610; 93005; 93306; 93970; 96361; 96365; 96367; 97116; 97162; 97530; 99291; A6261; C1725; C9113; G0482; J0692; J1650; J2060; J2270; J2405; J2543; J3370; J3475; J3490; J7030; J7040; J7050; J7060; J7070; J7120; P9016; A4315